=== PATIENT | male | born 1970 | race Two or more races ===

== ENCOUNTER 2017-01-23 22:54 | Emergency (ER) | payer SELFPAY ==
[~2017-01-23] VITALS: Ht 172.7 cm; Wt 88.9 kg
--- NOTE | 2017-01-23 23:14 | NUR ---
[facility], FAMILY CALLED 911, DENIES ANY MEDICAL COMPLAINTS ADMITS TO DRINKING KETAL ONE. PT AOX3 LUX[place]BOURGISH SPEAKING. PETER, EMT AT BEDSIDE TO TRANSLATE. RR EVEN AND UNLABORED. NO SOB NOTED. NAD NOTED. NO NVD AT THIS TIME. PT GOWNED AND PLACED ON MONITOR. DR HDZ AT BEDSIDE FOR EVAL.
--- NOTE | 2017-01-23 23:18 | NUR ---
BS NOTED 107, DR HDZ MADE AWARE
--- NOTE | 2017-01-23 23:26 | NUR ---
FAMILY AT BEDSIDE
--- NOTE | 2017-01-24 00:36 | NUR ---
SON AT BEDSIDE. AND WILL BRING PT HOME. Patient discharged to home in stable condition. Written and verbal after care instructions given. Patient verbalizes understanding of instruction. ambulatory with a steady gait. pt instructed pt not to drive. pt verbalizing understanding. pt accompanied by son. pt w/c per son request.
[2017-01-24 00:43] VITALS: BP 128/72
== END 2017-01-24 00:44 | disposition home or self-care (01) ==
LOC: ER 22:59
DX: F10.129 Alcohol abuse with intoxication, unspecified (principal); R79.89 Other specified abnormal findings of blood chemistry
CPT/HCPCS: 82962; 99283; A4606; Z7610